=== PATIENT | male | born 1960 | race Two or more races ===

== ENCOUNTER 2021-05-29 00:07 | Emergency (ER) | payer MEDICAID ==
[~2021-05-29] VITALS: Ht 180.3 cm; Wt 77.1 kg
--- NOTE | 2021-05-29 00:20 | NUR ---
BIBRA C/O LEFT KNEE PAIN RADIATING TO LEFT HIP X1DAY +KNEE SWEELING. PT CHANGED INTO A GOWN AND PLACED ON A MONITOR. VITALS STABLE. MD WAS AT BEDSIDE FOR EVAL.
[2021-05-29] MEDS ORDERED: ONDANSETRON 4 MG TAB.RAPDIS SL ONE (00:30)
[2021-05-29] MEDS ORDERED: IBUPROFEN 600 MG TABLET PO ONE (00:30)
[2021-05-29] MEDS ORDERED: HYDROCODONE/APAP 5/325MG TABLET PO ONE (00:30)
[2021-05-29] MEDS ORDERED: IBUPROFEN 600 MG TABLET ONE (00:44)
[2021-05-29] MEDS ORDERED: ONDANSETRON 4 MG TAB.RAPDIS ONE (00:44)
[2021-05-29] MEDS ORDERED: HYDROCODONE/APAP 5/325MG TABLET ONE (00:44)
--- NOTE | 2021-05-29 02:56 | NUR ---
FOLLOWED UP WITH [facility] REGARDING IMAGING RESULT
[2021-05-29] MEDS ORDERED: DICL50TA7 PO (03:59)
[2021-05-29] MEDS ORDERED: HYDR-4275 PO (04:00)
--- NOTE | 2021-05-29 04:32 | NUR ---
Patient discharged to home in stable condition. Written and verbal after care instructions given. Patient verbalizes understanding of instruction.
[2021-05-29 04:33] VITALS: BP 114/70
== END 2021-05-29 04:34 | disposition home or self-care (01) ==
LOC: ER 00:10
DX: M25.562 Pain in left knee (principal); R60.0 Localized edema; F17.200 Nicotine dependence, unspecified, uncomplicated; Z60.2 Problems related to living alone; Z79.899 Other long term (current) drug therapy
CPT/HCPCS: 73564; 93971; 99284; J7030; Q0162